=== PATIENT | male | born 1950 | race Caucasian/White ===

== ENCOUNTER 2018-12-04 10:56 | Day surgery (SDC) | payer MEDICARE, BC ==
[~2018-12-04 10:56] MED LIST: ACETAMINOPHEN 1,000 MG/100 ML BTL IV ONE; CEFAZOLIN 2 Gram 2 GM/50 ML BAG IVPB ONE
[2018-12-04] MEDS ORDERED: MORPHINE SULFATE 4 MG/ML VIAL IVP ONE (10:57)
[2018-12-04] MEDS ORDERED: PROPOFOL 10 MG/ML VIAL IV ONE (10:57)
[2018-12-04] MEDS ORDERED: MIDAZOLAM HCL 2MG/2ML VIAL IV ONE (10:57)
[2018-12-04] MEDS ORDERED: LIDOCAINE 2% MDV (20MG/ML) 20ML VIAL IV ONE (10:57)
[2018-12-04] MEDS ORDERED: BUPIVACAINE 0.5% W/EPI MPF 30 ML VIAL IVP ONE (10:57)
[2018-12-04] MEDS ORDERED: SEVOFLURANE 250 ML INH ONE (10:57)
[2018-12-04] MEDS ORDERED: METHYLPREDNISOLONE 40MG/VIAL IM ONE (10:57)
[2018-12-04] MEDS ORDERED: MORPHINE SULFATE 4 MG/ML VIAL ONE (12:47)
--- NOTE | 2018-12-05 10:11 | Operative Note ---
DATE OF SURGERY: 12/04/2018 PREOPERATIVE DIAGNOSIS: Internal derangement of the right knee. POSTOPERATIVE DIAGNOSES: 1. Grade 3 chondromalacia of the patella. 2. Grade 3 chondromalacia of the notch. 3. Diffuse synovitis. 4. Radial flap tear involving the posterior horn of the medial meniscus. 5. Grade 3 chondromalacia of the medial femoral condyle. 6. Grade 3 chondromalacia of the lateral femoral condyle. OPERATION: 1. Right knee arthroscopy with partial medial meniscectomy. 2. Right knee arthroscopy with complete synovectomy. 3. Right knee arthroscopy with chondroplasty of the patellofemoral compartment, medial femoral condyle, and lateral femoral condyle. Staff Surgeon: Lee Melendez MD Anesthesia: General. Preparation: Chloraprep. Individual Considerations: None. PROCEDURE: The patient was taken to the operating room and placed supine on the operating room table. The patient had a successful induction with general anesthetic. The right lower extremity was prepped and draped in the usual fashion. The patient had a superolateral inflow cannula placed. Skin was infiltrated with 0.5% Marcaine with epinephrine prior. A blood-tinged effusion was drained. The knee was inflated with normal saline. An inferomedial and an inferolateral portal were made in a similar fashion. The arthroscope was introduced through the inferolateral portal up into the pouch. The patellofemoral compartment showed diffuse synovitis in the pouch and both gutters. This was debrided out with a shaver. Grade 3 change on the undersurface of the patella which was smoothed with a shaver, basically fiber cartilage of the notch. Medially, he had a radial flap tear involving the posterior horn of the medial meniscus. This was debrided back to a stable rim with basket forceps and a shaver. He had grade 3 change in the medial femoral condyle just lateral to the midline from about 45-90 degrees of flexion. This was smoothed off with a shaver. Tibial plateau looked good. In the notch, the cruciates were normal laterally. The meniscus was intact. Tibial plateau looked good but there was some grade 3 change lateral to the midline again from 45-90 of the lateral femoral condyle which was smoothed off with a shaver. Neither of these areas was down to bone. The knee was then irrigated out with saline to remove loose floating debris. Portals were closed with radha, and 20 mL of 0.5% Marcaine with epinephrine along with 4 mg of morphine and 80 mg of Depo-Medrol were injected into the knee. A sterile bulky compressive dressing was applied. The patient tolerated procedure well. Needle and sponge counts were correct. Estimated blood loss was minimal. He was taken back to recovery in good condition. There were no complications. JATINDER
== END 2018-12-04 13:50 | disposition home or self-care (01) ==
LOC: SUR 10:56
PROVIDERS: ATTEND Orthopaedic Surgery
DX: S83.241A Other tear of medial meniscus, current injury, right knee, initial encounter (principal); M65.861 Other synovitis and tenosynovitis, right lower leg; M94.261 Chondromalacia, right knee; G47.33 Obstructive sleep apnea (adult) (pediatric); G25.81 Restless legs syndrome
CPT/HCPCS: 29881; 29876; 01400; J0690; J2270; J1030

== ENCOUNTER 2020-01-07 06:13 | Day surgery (SDC) | payer BC, MEDICARE ==
[~2020-01-07 06:13] MED LIST changes: -ACETAMINOPHEN 1,000 MG/100 ML BTL IV ONE; +CEFAZOLIN 1 Gram 1 GM/50 ML BAG IVPB ONE; +CELECOXIB 100 MG CAPSULE PO ONE; +FAMOTIDINE 20MG TABLET PO ONE; +MECLIZINE 25 MG TABLET PO ONE; +METOCLOPRAMIDE 10 MG TABLET PO ONE; +VANCOMYCIN 1GM/200ML PREMIX 1 GM/200 ML PIGGYBACK IVPB ONE
[2020-01-07] MEDS ORDERED: DEXAMETHASONE 4 MG/ML 1ML VIAL IVP ONE (06:14)
[2020-01-07] MEDS ORDERED: *PACU ONLY* KETAMINE HCL 10 MG/ML (20ML) VIAL IV ONE (06:14)
[2020-01-07] MEDS ORDERED: MIDAZOLAM HCL 2MG/2ML VIAL IV ONE (06:14)
[2020-01-07] MEDS ORDERED: LIDOCAINE 2% MDV (20MG/ML) 20ML VIAL IV ONE (06:14)
[2020-01-07] MEDS ORDERED: PROPOFOL 10 MG/ML VIAL IV ONE (06:14)
[2020-01-07] MEDS ORDERED: ROPIVACAINE HCL (NAROPIN) /PF 5MG/ML 20ML VIAL IV ONE (06:14)
[2020-01-07] MEDS ORDERED: RINGERS SOLUTION,LACTATED 1,000 ML IV ONE (07:15)
[2020-01-07 07:33] LABS: ABO GROUP O; RH TYPE NEGATIVE
[2020-01-07] MEDS ORDERED: BUPIVACAINE 0.5% W/EPI MPF 30 ML VIAL SQ ONE (09:28)
[2020-01-07] MEDS ORDERED: TRANEXAMIC ACID 1,000 MG/10 ML ML IV ONE (09:28)
[2020-01-07] MEDS ORDERED: TRANEXAMIC ACID 1,000 MG/10 ML ML IU ONE (09:28)
[2020-01-07] MEDS ORDERED: ZOLPIDEM TARTRATE 5 MG TABLET PO PRN (10:35)
[2020-01-07] MEDS ORDERED: DIPHENHYDRAMINE HCL 25 MG CAPSULE PO PRN (10:35)
[2020-01-07] MEDS ORDERED: HYDROMORPHONE HCL 2 MG/ML VIAL IM PRN (10:35)
[2020-01-07] MEDS ORDERED: AL HYDROX/MAG HYDROX 30ML UD PO PRN (10:35)
[2020-01-07] MEDS ORDERED: ACETAMINOPHEN 325 MG TAB PO PRN (10:35)
[2020-01-07] MEDS ORDERED: TRAMADOL HCL 50 MG TABLET PO PRN (10:35)
[2020-01-07] MEDS ORDERED: MAGNESIUM HYDROXIDE 30 ML UDC PO PRN (10:35)
[2020-01-07] MEDS ORDERED: ONDANSETRON HCL IV 4 MG/2 ML VIAL IVP PRN (10:35)
[2020-01-07] MEDS ORDERED: BISACODYL 10 MG SUPP RC PRN (10:35)
[2020-01-07] MEDS ORDERED: KETOROLAC 30 MG/ML VIAL IVP PRN (10:35)
[2020-01-07] MEDS ORDERED: NALOXONE 0.4 MG/1 ML VIAL IVP PRN (10:35)
[2020-01-07] MEDS: ACETAMINOPHEN W/ CODEINE 300MG/30MG TABLET PO PRN ×2 (13:23→22:20)
--- NOTE | 2020-01-07 13:38 | Rehab Evaluation ---
Patient Information - Patient Information Diagnosis: DJD R knee Ordered Treatment: PT Evaluate and Treat Status: Initial Evaluation Surgery: Yes (R TKA) Date of Surgery: 01/07/20 Past Medical/Surgical Hx: PAST MEDICAL/SURGICAL HISTORY Surgery to Affected Area? No Recent Surgery? Past Surgical History LEFT SHOULDER SCOPE 07-31-19 RIGHT KNEE SCOPE 12-04-18 right shoulder replacement c scopes bilat shoulder scope mely bariatric sx PMH - Respiratory Hx Respiratory Disorders Yes Hx Bronchitis Yes: in past Hx Sleep Apnea Yes Hx of CPAP No PMH - Cardiovascular Hx Cardiovascular Disorders No Exercise Tolerance Fair Comment: D/T knee pain PMH - Neuro Hx Neurological Disorders Yes Hx Dizziness Yes: menieres no problems since on meds Comment: RLS PMH - GI Hx Gastrointestinal Disorders Yes Hx Weight Loss/Weight Gain Yes: 15 LB GAIN SINCE DECREASE IN ACTIVITY D/T KNEE PAIN PMH - Hx Genitourinary Disorders Yes Hx Prostate Problems Yes: enlarged on meds PMH - Endocrine Hx Endocrine Disorders No Hx Diabetes No Hx Thyroid Disease No PMH - Musculoskeletal Hx Musculoskeletal Disorders Yes Hx Arthritis Yes: RIGHT KNEE Comment: LEFT SHOULDER PAIN PMH - Psych Hx Psychiatric Problems No PMH - Hematology/Oncology Hx Hematology/Oncology No Disorders Premorbid Status: Detail (The patient was independent with all mobility prior surgery.) Social History: Detail (The patient lives with spouse in one story house with a basement with one step, a landing and one step at the enterance with no railings. The bathrooom is equipped with: a tub shower combination, shower bench, standard height toilet with a riser seat with handles. No grab bars are present in the bathroom. The patient has a front wheeled walker and a standard walker and a standard cane.) Precautions: Murray, Fall, Other (WBAT on the R LE.) - Time With Patient Total Time Spent With Patient (Min): 25 Treatment Procedures: Detail (Initial Evaluation, low complexity) Subjective Information - Subjective Information Per Patient (The patient had no complaints of pain just pressure in the R knee, incisional area.) Objective Data - Mental Status Patient Orientation: Oriented x3 - Visual Perception Appears within normal limits for therapeutic activities - ROM Not within normal limits (The patient's R knee is limited as to be expected s/p surgery. All other LE AROM is WNL.) - Strength/Tone Other (The patient's LE strength was not tested s/p however is within functional limits.) - Bed Mobility Independent (The patient was independent with supine to and from sit transfer and scooting up in bed.) - Transfers Independent (The patient was independent with sit to and from stand transfer.) - Balance Balance Sitting: Good Balance Standing: Good - Sensation Intact - Gait Detail (The patient ambulated with front wheeled walker a distance of 128 feet x 1 WBAT on the R LE independently/supervision for safety only.) Therapy Assessment - Therapy Assessment Detail (The patient was independent with bed mobility, transfers and ambulation on levels. Will see patient for one to two visits to complete inpt. PT goals.) Problem List - Problem List Physical Therapy Problem List: Detail (Decreased R knee AROM and R LE strength s/p surgery.) Goals - Goals Physical Therapy Goals: 1) The patient will ambulate on stairs with supervision for safety using proper technique. 2) The patient will be independent with TKA HEP.
[2020-01-07] MEDS: POTASSIUM CHLORIDE/D5-0.9%NACL 20 MEQ/1,000 ML BAG IV SCH ×2 (14:09→19:45)
[2020-01-07] MEDS: CEFAZOLIN 2 Gram 2 GM/50 ML BAG IVPB SCH (18:25)
[2020-01-07] MEDS: DOCUSATE SODIUM 100 MG CAPSULE PO SCH (21:11)
[2020-01-07] MEDS: TAMSULOSIN HCL 0.4 MG CAP.ER.24H PO SCH (21:12)
[2020-01-07] MEDS ORDERED: PRAMIPEXOLE DI-HCL 0.25 MG TABLET PO SCH (22:00)
[2020-01-07] MEDS ORDERED: ATORVASTATIN 20 MG TABLET PO SCH (22:00)
[2020-01-07] MEDS ORDERED: ASPIRIN 81 MG TABEC PO SCH (22:00)
[2020-01-08] MEDS: ACETAMINOPHEN W/ CODEINE 300MG/30MG TABLET PO PRN ×3 (02:42→12:49)
[2020-01-08] MEDS: CEFAZOLIN 2 Gram 2 GM/50 ML BAG IVPB SCH ×2 (02:45→10:22)
[2020-01-08] MEDS: POTASSIUM CHLORIDE/D5-0.9%NACL 20 MEQ/1,000 ML BAG IV SCH (03:27)
[2020-01-08 07:25] LABS: HEMATOCRIT 41.8 % (42.0-52.0); HEMOGLOBIN 13.6 gm/dl (14.0-18.0)
[2020-01-08 07:36] LABS: BLOOD UREA NITROGEN 21 mg/dL (8-23); EST GLOMERULAR FILTRATION RATE > 60 mL/min; GLUCOSE,RANDOM 164 mg/dL (74-109)
[2020-01-08] MEDS ORDERED: MULTIVITAMINS/MINERALS TABLET PO SCH (10:00)
[2020-01-08] MEDS ORDERED: FERROUS SULFATE 325 MG TAB PO SCH (10:00)
[2020-01-08] MEDS ORDERED: TRIAMTERENE 37.5/HCTZ 25 CAPSULE PO SCH (10:00)
[2020-01-08] MEDS ORDERED: RIVAROXABAN 10 MG TABLET PO SCH (10:00)
[2020-01-08] MEDS: DOCUSATE SODIUM 100 MG CAPSULE PO SCH (10:06)
[2020-01-08] MEDS: TAMSULOSIN HCL 0.4 MG CAP.ER.24H PO SCH (10:07)
--- NOTE | 2020-01-08 10:08 | Physical Therapy Tx Note ---
Physical Therapy Tx Note - Treatment Note Tolerated: Good Total Time Spent With Patient: 30 Physical Therapy Tx Note: Detail (Patient states feeling pretty good today. Patient was supine in bed upon AMPOULE INSPECTOR arrival. Patient transferred supine to sit independently. Patient donned pants independently. Patient transferred sit to and from stand SBA x1. Patient ambulated 578 feet with wheeled walker SBA x1. Patient ascended and descended 8 steps with using stairwell railing and walker. Patient transferred sit to supine independently. Patient performed the following exercises x10 reps each: ankle pumps, glut squeezes, quad sets, heel slides, SLR, hamstring sets, and SAQ. Patient displays good understanding of ambulation with walker, stair climbing, and HEP. Patient was left reclined in bed with call light within reach. Patient discharged from inpatient PT at this time as all goals are met.) Physical Therapy Problem List: Detail (Decreased R knee AROM and R LE strength s/p surgery.) Physical Therapy Goals: 1) The patient will ambulate on stairs with supervision for safety using proper technique. Met. 2) The patient will be independent with TKA HEP. Met. Prognosis: Good Physical Therapy Plan: Patient discharged from inpatient PT at this time as all goals are met.
[2020-01-08 12:00] LABS: ANTIBODY SCREEN NEGATIVE (NEGATIVE)
--- NOTE | 2020-01-08 14:26 | Rehab Evaluation ---
Patient Information - Patient Information Diagnosis: DJD R knee Ordered Treatment: OT Evaluate and Treat Status: Initial Evaluation Surgery: Yes (R TKA) Date of Surgery: 01/07/20 Past Medical/Surgical Hx: PAST MEDICAL/SURGICAL HISTORY Surgery to Affected Area? No Recent Surgery? Past Surgical History LEFT SHOULDER SCOPE 07-31-19 RIGHT KNEE SCOPE 12-04-18 right shoulder replacement c scopes bilat shoulder scope mely bariatric sx PMH - Respiratory Hx Respiratory Disorders Yes Hx Bronchitis Yes: in past Hx Sleep Apnea Yes Hx of CPAP No PMH - Cardiovascular Hx Cardiovascular Disorders No Exercise Tolerance Fair Comment: D/T knee pain PMH - Neuro Hx Neurological Disorders Yes Hx Dizziness Yes: menieres no problems since on meds Comment: RLS PMH - GI Hx Gastrointestinal Disorders Yes Hx Weight Loss/Weight Gain Yes: 15 LB GAIN SINCE DECREASE IN ACTIVITY D/T KNEE PAIN PMH - Hx Genitourinary Disorders Yes Hx Prostate Problems Yes: enlarged on meds PMH - Endocrine Hx Endocrine Disorders No Hx Diabetes No Hx Thyroid Disease No PMH - Musculoskeletal Hx Musculoskeletal Disorders Yes Hx Arthritis Yes: RIGHT KNEE Comment: LEFT SHOULDER PAIN PMH - Psych Hx Psychiatric Problems No PMH - Hematology/Oncology Hx Hematology/Oncology No Disorders Premorbid Status: Detail (The patient was independent with all ADLs and functional mobility prior surgery.) Social History: Detail (The patient lives with spouse in one story house with a basement with one step, a landing and one more step at the entrance with no railings. The bathrooom is equipped with a tub shower combination, shower bench, standard height toilet with a riser seat with handles. No grab bars are present in the bathroom. The patient has a front wheeled walker, a standard walker and a standard cane. Is retired from working in the [employer].) Precautions: Elizabeth, Fall, Other (WBAT on the R LE.) - Time With Patient Total Time Spent With Patient (Min): 20 (1 OT eval low complexity) Subjective Information - Subjective Information Per Patient (Pt supine in bed upon therapist arrival, asks, "when does the doctor come around so I can go home.") Objective Data - Pain Pain Present: Yes (12/23) - Mental Status Patient Orientation: Oriented x3 - Visual Perception Appears within normal limits for therapeutic activities - ROM Within normal limits (B UEs) - Strength/Tone Within normal limits (B UEs) - Coordination Appears within normal limits for therapeutic activities - Bed Mobility Independent (Supine to/from EOB) - Transfers Independent (sit to/from stand from EOB to FWW w/ good balance and safety awareness) - Balance Balance Sitting: Good Balance Standing: Good, Fair (standing pant mgmt w/ good balance and occasional uni support on walker for balance) - Sensation Intact - Gait Detail (Fxl mobility within bedroom w/ FWW, good balance and safety awareness.) - ADL's/IADL's Detail (OT demos independence to don socks, underwear, and pants at EOB w/ good balance during standing pant mgmt. Educated on safe walker use during kitchen and bathroom tasks.) Therapy Assessment - Therapy Assessment Detail (Pt demos good safety and independence w/ all ADLs and functional TFs. Spouse available to assist as needed at DC. No further IP OT needs identified.) Patient Education - Patient Education Teaching Topic: Other (modified techniques for dressing and general safety) Response: Return Demonstration, Verbalize Understanding Teaching Method: Discussion, Demonstration Teaching Recipient: Patient Barriers To Learning: None Problem List - Problem List Physical Therapy Problem List: Detail (Decreased R knee AROM and R LE strength s/p surgery.) Occupational Therapy Problem List: Detail (No further IP OT needs identified.) Goals - Goals Physical Therapy Goals: 1) The patient will ambulate on stairs with supervision for safety using proper technique. Met. 2) The patient will be independent with TKA HEP. Met. Occupational Therapy Goals: No further IP OT needs/goals identified. Prognosis - Prognosis Good Plan - Plan Physical Therapy Plan: Patient discharged from inpatient PT at this time as all goals are met. Occupational Therapy Plan: No further IP OT needs identified. [facility] OT services. Thank you for this referral.
--- NOTE | 2020-01-14 14:01 | Operative Note ---
DATE OF SURGERY: 01/07/2020 PREOPERATIVE DIAGNOSIS: End-stage arthrosis of the right knee. POSTOPERATIVE DIAGNOSIS: End-stage arthrosis of the right knee. OPERATION: Cemented right total knee arthroplasty using [employer] components with a size 7 Oxinium femur, a size 7 stemmed tibia baseplate, a 9 mm lipped highly crosslinked tibial insert, and a 35 mm all-plastic patella. STAFF SURGEON: Lee Melendez MD ANESTHESIA: Spinal. PREPARATION: Chloraprep. INDIVIDUAL CONSIDERATIONS: None. PROCEDURE: The patient was taken to the operating room, placed supine on the operating room table. He had a successful induction of a spinal anesthetic. The right lower extremity was prepped and draped in the usual fashion. The patient had a midline approach to the knee. The limb was elevated and tourniquet was inflated to 250 mmHg. Sharp dissection carried down through skin and subcutaneous tissue. Small veins were coagulated with a Bovie. A medial arthrotomy was performed. The patella was everted and the knee was flexed. The patient had exposed bone in the medial and patellofemoral compartments. Fat pad was resected, ACL was sacrificed, and provisional anterior meniscectomies were performed. The capsule was released from the medial proximal tibia. The initial femoral [place] pilot hole was then made freehand. The intramedullary femoral cutting jig was placed. It was cut in 7.0 degrees of valgus and set for a 10 mm resection and secured with pins. The initial transverse cut was then made. The skin guide was placed in the anterior and posterior [place] pilot holes. It was found that a size 7 would be appropriate. It was cut in 3 degrees of external rotation. The anterior and posterior cuts followed by chamfer cuts were made. Osteophytes removed, and a size 7 trial was placed and found to fit well. The tibia was brought forward, and the remainder of the meniscal remnants removed with a Bovie. The extraarticular tibial cutting jig was placed. It was cut in neutral with a 3-degree AP slope. It was set for a 9 mm resection keyed off the high lateral side and secured with pins. When cutting the tibia, care was taken to preserve the PCL insertion on the tibia. After removing osteophytes, I could fit a size 7 baseplate. It was adjusted for rotation and secured with pins. With a 9 mm trial and femoral trial, there was excellent motion and stability. Ligamentous balance and rotation alignment were thought to be normal. Femoral [place] pilot holes were impacted and the tri-flange tibial keel stamp was impacted, and these trial components were removed. The patient had a thick patella and roughly 9 mm of bone was removed freehand. I could easily fit a size 35 patella, and the 3 [place] pilot holes were drilled. The tourniquet was let down briefly to get bleeders posteriorly and then placed back up again. The knee was then thoroughly irrigated out with pulsatile Betadine and saline to remove any visual or palpable debris. Bony surfaces were then dried with a CarboJet. A size 7 stemmed tibia baseplate was cemented into place followed by impaction of the 9 mm lipped tibial insert followed by cementing in the size 7 Oxinium femur followed by cementing in the 35 mm all-plastic patella. The implant surfaces were compressed, excess cement was removed. After the cement had set, there was excellent motion and stability. Ligamentous balance, rotation alignment, and patellofemoral tracking were normal. No lateral release was required. Final irrigation with pulsatile Betadine and saline. The skin and subcu were then infiltrated with 30 mL of 0.5% Marcaine with epinephrine along with infiltrating the periosteum. Tourniquet was let down. Hemostasis was obtained with a Bovie. The capsule was then closed with a running #2 quill, subcu was closed in layers with running 0 quill, skin was closed with radha. Then 1 g of tranexamic acid was mixed with 30 mL of saline and injected into the knee through a sterile 18-gauge needle, and a sterile bulky compressive RHETT- type dressing was applied. The patient tolerated the procedure well. Needle and sponge counts were correct. Estimated blood loss was minimal, and he was taken back to recovery in good condition. There were no complications. JATINDER
== END 2020-01-08 15:10 | disposition home health service (06) ==
LOC: SUR 06:13 → MEDSURG 11:46 → SUR 01-08 15:10
PROVIDERS: ATTEND Orthopaedic Surgery
DX: M17.11 Unilateral primary osteoarthritis, right knee (principal); G47.33 Obstructive sleep apnea (adult) (pediatric)
CPT/HCPCS: 27447; 01402; 64448; 85018; 85014; 80048; 86900; 86901; 86850; 76942; C1776; J1885; J2405; J0690 ×3; J1170; J2795; J3370; J3480; J7120